=== PATIENT | male | born 1960 | race Caucasian/White ===

== ENCOUNTER 2017-05-18 00:46 | Emergency (ER) | payer OTHER ==
[2017-05-18 03:58] LABS: HEMOGLOBIN 15.2 gm/dl (14.0-17.5); RED BLOOD COUNT 5.6 M/UL (4.20-5.50); WHITE BLOOD COUNT 8.1 K/UL (4.5-11.0)
[2017-05-18 04:03] LABS: BUN/CREATININE RATIO 12 (0-10)
[2017-05-22] MEDS ORDERED: KLOR-CON20 MEQ PO (00:37)
[2017-05-22] MEDS ORDERED: PREDNISONE 50 M50 MG PO (00:37)
[2017-05-22] MEDS ORDERED: HYDROCHLOROTH12.5 M1 PO (00:38)
[2017-05-22] MEDS ORDERED: ACID CONTROLLER20 MG PO (00:40)
[2017-05-22] MEDS ORDERED: PROTONIX40 MG PO (17:48)
[2017-05-22] MEDS ORDERED: LEXAPRO5 MG PO (17:50)
[2017-05-22] MEDS ORDERED: ASPIR-LOW81 MG PO (17:51)
[2017-06-10] MEDS ORDERED: NORCO 7.5-3251 EACH PO (12:59)
== END 2017-05-18 13:10 | disposition home or self-care (01) ==
LOC: ER1 00:46
PROVIDERS: Student in an Organized Health Care Education/Training Program
DX: R07.89 Other chest pain (principal); T78.3XXA Angioneurotic edema, initial encounter; I10 Essential (primary) hypertension; L40.9 Psoriasis, unspecified; Z79.899 Other long term (current) drug therapy
CPT/HCPCS: 36415; 71010; 80053; 82550; 82553; 83874; 84484; 85025; 93005; 96374; 96375; 99285; J0171; J1200; J1650; J2930